=== PATIENT | male | born 1965 | race Caucasian/White ===

== ENCOUNTER 2018-12-22 09:43 | Emergency (ER) | payer OTHER ==
[~2018-12-22] VITALS: Ht 167.6 cm; Wt 73.0 kg
[2018-12-22 09:52] VITALS: Ht 167.6 cm; Wt 73.0 kg
[2018-12-22 11:30] VITALS: BP 142/105
== END 2018-12-22 11:30 | disposition home or self-care (01) ==
LOC: ED 09:43
DX: H11.31 Conjunctival hemorrhage, right eye (principal); S05.01XA Injury of conjunctiva and corneal abrasion without foreign body, right eye, initial encounter; Z88.0 Allergy status to penicillin; W22.8XXA Striking against or struck by other objects, initial encounter; Y93.89 Activity, other specified; Y92.89 Other specified places as the place of occurrence of the external cause; Y99.8 Other external cause status

== ENCOUNTER 2020-01-02 14:30 | Emergency (ER) | payer OTHER ==
[~2020-01-02] VITALS: Ht 167.6 cm; Wt 70.8 kg
[2020-01-02 14:38] VITALS: Ht 167.6 cm; Wt 70.8 kg
[2020-01-02 16:45] VITALS: BP 131/82
== END 2020-01-02 16:45 | disposition home or self-care (01) ==
LOC: ED 14:30
DX: T15.02XA Foreign body in cornea, left eye, initial encounter (principal); Z88.0 Allergy status to penicillin; W45.8XXA Other foreign body or object entering through skin, initial encounter; Y93.89 Activity, other specified; Y92.89 Other specified places as the place of occurrence of the external cause; Y99.8 Other external cause status